=== PATIENT | male | born 1995 | race Two or more races ===

== ENCOUNTER 2016-08-08 04:54 | Emergency (ER) | payer SELFPAY ==
[~2016-08-08] VITALS: Ht 167.6 cm; Wt 61.3 kg
[2016-08-08 04:55] VITALS: BP 113/77
== END 2016-08-08 05:33 | disposition home or self-care (01) ==
LOC: ED 05:28
DX: J02.0 Streptococcal pharyngitis (principal)
CPT/HCPCS: 99283

== ENCOUNTER 2016-10-11 17:15 | Emergency (ER) | payer BC ==
[~2016-10-11] VITALS: Ht 170.2 cm; Wt 67.0 kg
[2016-10-11 17:21] VITALS: BP 139/83
[2016-10-11] MEDS ORDERED: BUPIVACAINE 0.25% ONE (17:43)
[2016-10-11] MEDS ORDERED: LIDOCAINE 1%, 20ML ONE (17:43)
[2016-10-11] MEDS ORDERED: BUPIVACAINE 0.25% INFIL ONE (18:00)
[2016-10-11] MEDS ORDERED: LIDOCAINE 1%, 20ML SQ ONE (18:00)
[2016-10-11] MEDS ORDERED: BACITRACIN ZINC OINT 500U/GM, 0.9 GM ONE (18:47)
== END 2016-10-11 19:06 | disposition home or self-care (01) ==
LOC: ED 18:41
DX: S67.192A Crushing injury of right middle finger, initial encounter (principal); F17.200 Nicotine dependence, unspecified, uncomplicated; W23.1XXA Caught, crushed, jammed, or pinched between stationary objects, initial encounter; Y93.89 Activity, other specified; Y92.810 Car as the place of occurrence of the external cause; Y99.8 Other external cause status
CPT/HCPCS: 29130